=== PATIENT | female | born 1985 | race Caucasian/White ===

== ENCOUNTER 2021-11-07 23:46 | Emergency (ER) | payer SELFPAY ==
[~2021-11-07] VITALS: Ht 157 cm; Wt 53.0 kg
[2021-11-08 00:08] VITALS: BP 145/114
--- NOTE | 2021-11-08 00:11 | ED Abdominal Pain ---
General Chief Complaint: Abdominal/GI Problems Stated Complaint: ABD PAIN,STS POSS Source of Information: Patient Exam Limitations: Language Barrier (Language hotline was used) History of Present Illness Date Seen by Provider: November 07, 2021 Time Seen by Provider: 23:51 Initial Comments Patient to the ER by private conveyance chief complaint of a half an hour of severe pain down in her suprapubic and right lower quadrant abdomen. She has not had dysuria hematuria discharge diarrhea or constipation. She had a normal bowel movement this morning. She has not had any trauma falls or assault. She has had nausea off and on for the past 2 to 3 months. She says she is had this same pain off and on for the past month. She went to the clinic and had an x- ray and urine done and they thought she had a kidney stone. She has had 4 C-sec tions and she is unsure if the surgeon in [facility] tied her tubes. She had a negative urine test on Sunday, 4 days ago. Allergies and Home Medications Allergies Coded Allergies: No Known Drug Allergies (Unverified , 11/08/21) Patient Home Medication List Home Medication List Reviewed: Yes Cephalexin (Cephalexin) 500 Mg Tablet, 500 MG PO BID Prescribed by: REY HOOPER on 11/08/21 0246 Hydrocodone/Acetaminophen (Hydrocodone-Acetamin 5-325 mg) 5 Mg-325 Mg Tablet, 1 TAB PO Q4H PRN for PAIN-MODERATE (5-7) Prescribed by: REY HOOPER on 11/08/21 0247 Ondansetron (Ondansetron Odt) 4 Mg Tab.rapdis, 4 MG PO Q6H PRN for NAUSEA/VOMITING Prescribed by: REY HOOPER on 11/08/21 0246 Review of Systems Review of Systems Constitutional: No chills, No diaphoresis EENTM: No Blurred Vision, No Double Vision Respiratory: Denies Cough, Denies Shortness of Air Cardiovascular: Denies Chest Pain, Denies Lightheadedness Gastrointestinal: Denies Abdomen Distended; Abdominal Pain; Denies Blood Streaked Stools, Denies Constipated, Denies Diarrhea; Nausea; Denies Poor Fluid Intake; Vomiting Genitourinary: Denies Burning, Denies Discharge Musculoskeletal: No back pain, No joint pain Psychiatric/Neurological: Denies Anxiety, Denies Depressed All Other Systems Reviewed Negative Unless Noted: Yes Past Tshmegr-Yyiykh-Iwymyp Hx Patient Social History Tobacco Use?: No Use of E-Cig and/or Vaping dev: No Substance use?: No Physical Exam Vital Signs Vital Signs - First Documented 11/08/21 00:08 Temp 37.1 Pulse 81 Resp 18 B/P (MAP) 145/114 (124) Pulse Ox 100 O2 Delivery Room Air Capillary Refill : Height/Weight/BMI Height: '" Weight: lbs. oz. kg; BMI Method: General Appearance: WD/WN, moderate distress HEENT: PERRL/EOMI, pharynx normal Neck: full range of motion, supple, normal inspection Respiratory: lungs clear, normal breath sounds, no respiratory distress, no accessory muscle use Cardiovascular: normal peripheral pulses, regular rate, rhythm Peripheral Pulses: 2+ Radial Pulses (R), 2+ Radial Pulses (L) Gastrointestinal: normal bowel sounds, soft, tenderness (Right lower quadrant without rebound tenderness, Rovsing sign or Steve sign.) Back: normal inspection, no vertebral tenderness, CVA tenderness (R); No CVA tenderness (L) Neurologic/Psychiatric: alert, normal mood/affect, oriented x 3 Skin: normal color, warm/dry Progress/Results/Core Measures Results/Orders Lab Results Laboratory Tests Test 11/08/21 00:06 11/08/21 00:10 Range/Units White Blood Count 7.9 4.3-11.0 10^3/uL Red Blood Count 4.34 3.80-5.11 10^6/uL Hemoglobin 12.7 11.5-16.0 g/dL Hematocrit 38 35-52 % Mean Corpuscular Volume 87 80-99 fL Mean Corpuscular Hemoglobin 29 25-34 pg Mean Corpuscular Hemoglobin Concent 34 32-36 g/dL Red Cell Distribution Width 13.1 10.0-14.5 % Platelet Count 238 130-400 10^3/uL Mean Platelet Volume 9.3 9.0-12.2 fL Immature Granulocyte % (Auto) 0 % Neutrophils (%) (Auto) 75 42-75 % Lymphocytes (%) (Auto) 14 12-44 % Monocytes (%) (Auto) 9 0-12 % Eosinophils (%) (Auto) 1 0-10 % Basophils (%) (Auto) 0 0-10 % Neutrophils # (Auto) 5.9 1.8-7.8 10^3/uL Lymphocytes # (Auto) 1.1 1.0-4.0 10^3/uL Monocytes # (Auto) 0.7 0.0-1.0 10^3/uL Eosinophils # (Auto) 0.1 0.0-0.3 10^3/uL Basophils # (Auto) 0.0 0.0-0.1 10^3/uL Immature Granulocyte # (Auto) 0.0 0.0-0.1 10^3/uL Sodium Level 139 135-145 MMOL/L Potassium Level 3.7 3.6-5.0 MMOL/L Chloride Level 106 98-107 MMOL/L Carbon Dioxide Level 19 L 21-32 MMOL/L Anion Gap 14 5-14 MMOL/L Blood Urea Nitrogen 16 7-18 MG/DL Creatinine 0.91 0.60-1.30 MG/DL Estimat Glomerular Filtration Rate 84 BUN/Creatinine Ratio 18 Glucose Level 107 H 70-105 MG/DL Calcium Level 8.6 8.5-10.1 MG/DL Corrected Calcium 8.5 8.5-10.1 MG/DL Total Bilirubin 0.3 0.1-1.0 MG/DL Aspartate Amino Transf (AST/SGOT) 22 5-34 U/L Alanine Aminotransferase (ALT/SGPT) 20 0-55 U/L Alkaline Phosphatase 60 40-136 U/L C-Reactive Protein High Sensitivity 0.12 0.00-0.50 MG/DL Total Protein 6.6 6.4-8.2 GM/DL Albumin 4.1 3.2-4.5 GM/DL Urine Color YELLOW Urine Clarity CLEAR Urine pH 7.0 5-9 Urine Specific [place] 1.020 1.016-1.022 Urine Protein NEGATIVE NEGATIVE Urine Glucose (UA) NEGATIVE NEGATIVE Urine Ketones NEGATIVE NEGATIVE Urine Nitrite NEGATIVE NEGATIVE Urine Bilirubin NEGATIVE NEGATIVE Urine Urobilinogen 0.2 < = 1.0 MG/DL Urine Leukocyte Esterase NEGATIVE NEGATIVE Urine RBC (Auto) NEGATIVE NEGATIVE Urine RBC NONE /HPF Urine WBC NONE /HPF Urine Squamous Epithelial Cells 0-2 /HPF Urine Crystals NONE /LPF Urine Bacteria NEGATIVE /HPF Urine Casts NONE /LPF Urine Mucus NEGATIVE /LPF Urine Culture Indicated NO My Orders Orders - REY HOOPER Ua Culture If Indicated (11/07/21 23:48) Urine Bedside (11/07/21 23:48) Ct Abd/Pelvis Wo(Kidney Stone) (11/08/21 00:04) Cbc With Automated Diff (11/08/21 00:05) Comprehensive Metabolic Panel (11/08/21 00:05) Hs C Reactive Protein (11/08/21 00:05) Ketorolac Injection (Toradol Injection) (11/08/21 00:15) Ondansetron Injection (Zofran Injectio (11/08/21 00:15) Ed Iv/Invasive Line Start (11/08/21 00:11) Lactated Ringers (Lr 1000 Ml Iv Solution (11/08/21 00:15) Ceftriaxone 1 Gm Pre-Mix (Rocephin 1 Gm (11/08/21 00:45) Tamsulosin Capsule (Flomax Capsule) (11/08/21 18:00) Rx-Hydrocodone/Apap 5-325 Mg (Rx-Vicodin (11/08/21 00:45) Medications Given in ED Vital Signs/I&O 11/08/21 00:08 Temp 37.1 Pulse 81 Resp 18 B/P (MAP) 145/114 (124) Pulse Ox 100 O2 Delivery Room Air Progress Progress Note #1: Time: 00:13 Progress Note Ureteral calculus versus pyelonephritis versus appendicitis versus other. Plan to give her some Toradol, a liter of fluids, Zofran for her nausea and obtain urine and blood samples. CT noncontrast with kidney stone protocol to start. Bedside was negative. Ectopic is unlikely then. She denies history of endometriosis but adhesions or even internal herniation could be possible. She says she is passing gas and having bowel movements. Progress Note #2: Time: 01:02 Progress Note Rocephin, Flomax, take-home pack of hydrocodone and will get her a referral to Dr. Nunez, urology. Progress Note #3: Time: 01:41 Progress Note We do not have a local urologist on-call today so we called [facility] to discuss the case with a urologist and review imaging and develop a plan. Progress Note #4: Time: 01:48 Progress Note Discussed the case with Dr. Eder Harris, urology at [facility] and he would not project management analyst at this time. If she will call the clinic this morning he will get her in Sunday. Diagnostic Imaging Diagonstic Imaging: CT Plain Films/CT/US/NM/MRI: abdomen, pelvis Comments Imaging degraded by motion. Mild hepatosplenomegaly. Moderate to severe dilatation of proximal right upper renal collecting system. Large calculus proximal right ureter measuring up to 6.5 mm. There is edematous enlargement of the right kidney with right perinephric stranding and perinephric fluid. Findings suggest probable ruptured calyceal fornices. Nonspecific prominence of the uterus and cervix. Bladder wall thickening indeterminate for cystitis. [facility]To [facility] [place], [place] NAME: RAJNI MASSEY [facility] REC#: [id number] PT STATUS: DEP ER : 1985 PHYSICIAN: REY HOOPER MD ADMIT DATE: 11/07/21/ER Signed Date of Exam:11/08/21 CT ABD/PELVIS WO(KIDNEY STONE) PROCEDURE: CT urinary tract, rule out kidney stone. TECHNIQUE: Multiple contiguous axial images were obtained through the abdomen and pelvis without the use of intravenous contrast. Auto Exposure Controls were utilized during the CT exam to meet ALARA standards for radiation dose reduction. INDICATION: 36-year-old female presents to the Emergency Room with generalized abdominal pain. COMPARISONS: None FINDINGS: Lung bases are clear. Cardiac contour is normal. Liver shows uniform attenuation. Gallbladder is nondistended. Spleen and GE junction are normal. Stomach and duodenal sweep are unremarkable. Pancreas shows sharp margins. Adrenals are normal. Kidneys appear normal in size, position, and contour. There is right perinephric stranding. There is also moderate right hydronephrosis. There is right obstructive uropathy secondary to a 8 mm in long axis stone in the right UPJ. No other discrete renal or ureteral calculi are seen. Both ureters are seen intermittently through their course. Bladder is underfilled. Bladder wall is mildly prominent and is most likely due to underfilling. Uterus and adnexa are grossly normal. Nonopacified loops of small bowel are normal. Large bowel contains a moderate amount of fecal load. No areas of peritoneal inflammation seen. There is normal caliber of the aorta, iliac and femoral arteries with normal origin of the visceral arteries. Bone windows show no overall gross abnormalities. IMPRESSION: 1. Right obstructive uropathy with moderate right hydronephrosis. This is secondary to an oval 8 mm long axis stone in the right UPJ. There is associated right perinephric stranding. Additional nonemergent findings as described. 2. There is no evidence of hepatosplenomegaly as suggested by alondrak. 3. Slight prominence of the bladder wall is most likely due to nondistention. Remote possibility of cystitis in the appropriate clinical setting cannot be entirely excluded, correlate clinically. Otherwise agree with [facility] report. Dictated by: Dictated on workstation # [id number] Dict: 11/08/21516 Trans: 11/08/2103 [facility] [id number] Interpreted by: SINDHU ESPINOZA MD Electronically signed by: SINDHU ESPINOZA MD 11/08/21702 Reviewed: Reviewed by Me Departure Impression Primary Impression: Ureteral calculus, right Disposition: 01 HOME, SELF-CARE Condition: Stable Departure-Patient Inst. Decision time for Depature: 01:51 Referrals: NO,LOCAL PHYSICIAN (PCP) Primary Care Physician CHARISSA NUNEZ MD Patient Instructions: Kidney Stones (DC), How to Strain Your Urine Add. Discharge Instructions: Strain your urine to see if the stone passes. Call Dr. Nunez, urology and request a follow-up appointment this week. Alternatively you may call Dr. Harris, urology at [facility] and they will get to and to get this fixed on Sunday. [phone]. Drink lots of fluids. Cefdinir 1 capsule twice a day to treat possible urinary tract infection. Ibuprofen 800 mg every 8 hours as needed for pain. Tylenol 1000 mg every 8 hours as needed for pain. Hydrocodone 1 tablet every 4 hours as needed for breakthrough pain. Ondansetron 1 tablet every 6 hours as needed for nausea and/or vomiting. All discharge instructions reviewed with patient and/or family. Voiced understanding. Scripts Cephalexin (Cephalexin) 500 Mg Tablet 500 MG PO BID for 7 Days, #14 TAB 0 Refills Prov: REY HOOPER 11/08/21 Ondansetron (Ondansetron Odt) 4 Mg Tab.rapdis 4 MG PO Q6H PRN for NAUSEA/VOMITING, #8 TAB 0 Refills Prov: REY HOOPER 11/08/21 Hydrocodone/Acetaminophen (Hydrocodone-Acetamin 5-325 mg) 5 Mg-325 Mg Tablet 1 TAB PO Q4H PRN for PAIN-MODERATE (5-7), #15 TAB 0 Refills Prov: REY HOOPER 11/08/21 Work/School Note: Work Release Form Date Seen in the Emergency Department: November 08, 2021 Return to Work: Nov 10, 2021 Restrictions: No Restrictions Copy Copies To 1: CHARISSA NUNEZ MD, TITUS J November 08, 2021 00:11
[2021-11-08 00:15] LABS: BILIRUBIN,URINE NEGATIVE (NEGATIVE); CLARITY,URINE CLEAR; COLOR,URINE YELLOW; GLUCOSE, URINE (UA) NEGATIVE (NEGATIVE); KETONES,URINE NEGATIVE (NEGATIVE); LEUKOCYTE ESTERASE ,URINE NEGATIVE (NEGATIVE); NITRITE,URINE NEGATIVE (NEGATIVE); PROTEIN,URINE NEGATIVE (NEGATIVE)
[2021-11-08] MEDS ORDERED: LACTATED RINGERS 1,000 ML IV ONE (00:15)
[2021-11-08] MEDS ORDERED: ONDANSETRON 4 MG/2 ML (SDV) Z0FRAN IVP ONE (00:15)
[2021-11-08] MEDS ORDERED: KETOROLAC 30 MG/ML VIAL IVP ONE (00:15)
[2021-11-08 00:21] LABS: BASOPHILS % (AUTO) 0 % (0-10); EOSINOPHILS # (AUTO) 0.1 10^3/uL (0.0-0.3); EOSINOPHILS % (AUTO) 1 % (0-10); HEMATOCRIT 38 % (35-52); HEMOGLOBIN 12.7 g/dL (11.5-16.0); LYMPHOCYTES # (AUTO) 1.1 10^3/uL (1.0-4.0); LYMPHOCYTES % (AUTO) 14 % (12-44); MEAN CORPUSCULAR HEMOGLOBIN 29 pg (25-34); MEAN CORPUSCULAR HGB CONC 34 g/dL (32-36); MEAN CORPUSCULAR VOLUME 87 fL (80-99); MEAN PLATELET VOLUME 9.3 fL (9.0-12.2); MONOCYTES # (AUTO) 0.7 10^3/uL (0.0-1.0); MONOCYTES % (AUTO) 9 % (0-12); NEUTROPHILS # (AUTO) 5.9 10^3/uL (1.8-7.8); NEUTROPHILS % (AUTO) 75 % (42-75); PLATELET COUNT 238 10^3/uL (130-400); WHITE BLOOD COUNT 7.9 10^3/uL (4.3-11.0)
[2021-11-08 00:30] LABS: ALBUMIN 4.1 GM/DL (3.2-4.5); POTASSIUM 3.7 MMOL/L (3.6-5.0)
[2021-11-08 00:31] LABS: CALCIUM 8.6 MG/DL (8.5-10.1)
[2021-11-08 00:33] LABS: TOTAL PROTEIN 6.6 GM/DL (6.4-8.2)
[2021-11-08 00:34] LABS: BILIRUBIN,TOTAL 0.3 MG/DL (0.1-1.0)
[2021-11-08 00:36] LABS: CREATININE SERUM 0.91 MG/DL (0.60-1.30)
[2021-11-08 00:43] LABS: BACTERIA,URINE NEGATIVE /HPF; SQUAMOUS EPITHELIAL CELL,UR 0-2 /HPF
[2021-11-08] MEDS ORDERED: cefTRIAXone 1 GM PRE-MIX 50 ML IV ONE (00:45)
[2021-11-08] MEDS ORDERED: CEPH500T PO (02:46)
[2021-11-08] MEDS ORDERED: ACHD5005 PO (02:46)
[2021-11-08] MEDS ORDERED: ONDA4TAB11 PO (02:46)
--- NOTE | 2021-11-08 05:28 | Diagnostic Imaging Report ---
PROCEDURE: CT urinary tract, rule out kidney stone. TECHNIQUE: Multiple contiguous axial images were obtained through the abdomen and pelvis without the use of intravenous contrast. Auto Exposure Controls were utilized during the CT exam to meet ALARA standards for radiation dose reduction. INDICATION: 36-year-old female presents to the Emergency Room with generalized abdominal pain. COMPARISONS: None FINDINGS: Lung bases are clear. Cardiac contour is normal. Liver shows uniform attenuation. Gallbladder is nondistended. Spleen and GE junction are normal. Stomach and duodenal sweep are unremarkable. Pancreas shows sharp margins. Adrenals are normal. Kidneys appear normal in size, position, and contour. There is right perinephric stranding. There is also moderate right hydronephrosis. There is right obstructive uropathy secondary to a 8 mm in long axis stone in the right UPJ. No other discrete renal or ureteral calculi are seen. Both ureters are seen intermittently through their course. Bladder is underfilled. Bladder wall is mildly prominent and is most likely due to underfilling. Uterus and adnexa are grossly normal. Nonopacified loops of small bowel are normal. Large bowel contains a moderate amount of fecal load. No areas of peritoneal inflammation seen. There is normal caliber of the aorta, iliac and femoral arteries with normal origin of the visceral arteries. Bone windows show no overall gross abnormalities. IMPRESSION: 1. Right obstructive uropathy with moderate right hydronephrosis. This is secondary to an oval 8 mm long axis stone in the right UPJ. There is associated right perinephric stranding. Additional nonemergent findings as described. 2. There is no evidence of hepatosplenomegaly as suggested by [facility]. 3. Slight prominence of the bladder wall is most likely due to nondistention. Remote possibility of cystitis in the appropriate clinical setting cannot be entirely excluded, correlate clinically. Otherwise agree with [facility] report. Dictated by: Dictated on workstation # [id number]
[2021-11-08] MEDS ORDERED: TAMSULOSIN 0.4 MG (FLOMAX) CAP PO SCH (18:00)
== END 2021-11-08 02:53 | disposition home or self-care (01) ==
LOC: EDUNIT# 23:46 → ER 23:49
DX: N13.2 Hydronephrosis with renal and ureteral calculous obstruction (principal)
CPT/HCPCS: 36415; 74176; 80053; 81000; 84703; 85025; 86141